=== PATIENT | female | born 1930 | race Caucasian/White ===

== ENCOUNTER → 2017-05-06 | Outpatient (CLI) | payer MEDICARE, OTHER ==
[~2017-05-06] MED LIST: ALDACTONE25 MG PO; ALLEGRA180 MG PO; ASPIRIN (CHILDR81 MG PO; CORGARD40 MG PO; COZAAR100 MG PO; CRESTOR10 MG PO; EFFEXOR75 MG PO; GLUCOPHAGE500 MG PO; LAMICTAL25 MG PO; LEVOTHROID(SYN75 MCG PO; NORVASC2.5 MG PO; PRILOSEC20 MG PO; TOPROL XL100 MG PO
== END | disposition disaster alternative care site (69) ==
LOC: GBCOE 14:15
DX: Z12.31 Encounter for screening mammogram for malignant neoplasm of breast (principal)
CPT/HCPCS: G0202